=== PATIENT | male | born 1945 | race Caucasian/White ===

== ENCOUNTER 2016-08-09 15:35 | Emergency (ER) | payer OTHER ==
[2016-08-09 15:45] LABS: BASOPHIL# 0.1 X10e3 (0-0.3); BASOPHIL% 0.7 % (0-2.5); EOSINOPHIL# 0.1 X10e3 (0-0.7); EOSINOPHIL% 1.7 % (0.0-7.0); HEMATOCRIT 45.6 % (38.0-50.0); HEMOGLOBIN 14.8 gm/dL (13.0-16.0); LYMPHOCYTE% 24.7 % (17.0-45.0); MEAN CELL VOLUME 86.8 FL (83-96); MEAN CORPUSCULAR HEMOGLOBIN 28.2 PG (28-34); MEAN CORPUSCULAR HGB CONC 32.5 g/dL (30-36); MEAN PLATELET VOLUME 8.1 FL (6.5-11.5); MONOCYTE# 0.5 X10e3 (0-1.0); MONOCYTE% 6.2 % (3.0-12.0); NEUTROPHIL# 5.4 X10e3 (1.5-7.1); NEUTROPHIL% 66.7 % (40-75); PLATELET COUNT 198 X10e3 (140-420); RED BLOOD COUNT 5.25 X10e (3.90-5.60); RED CELL DISTRIBUTION WIDTH 14.1 % (11.0-15.5)
[2016-08-09 15:47] LABS: DIFF IND NO
[2016-08-09 16:09] LABS: BUN/CREATININE RATIO 24.1; CALCIUM SERUM 9.4 mg/dL (8.4-10.2); CREATININE SERUM 3.9 mg/dL (0.6-1.4); GLOM FILT RATE Estimated 14.3 mL/min (>60); POTASSIUM 5.1 mmol/L (3.5-5.1)
[2016-08-09] MEDS ORDERED: LANTUS100 U/ML SUBQ (16:50)
[2016-08-09] MEDS ORDERED: LASIX PO (16:50)
[2016-08-09] MEDS ORDERED: HYDROCODON-ACE1 EAC5 PO (16:51)
[2016-08-09] MEDS ORDERED: HYDROCODONE/HO240 ML PO (16:52)
[2016-08-09] MEDS ORDERED: ASPIRIN81 M2 PO (16:52)
[2016-08-09] MEDS ORDERED: STOOL SOFTENER50 MG PO (16:53)
== END 2016-08-09 17:00 | disposition admitted as inpatient to this hospital (09) ==
LOC: CED 15:35
PROVIDERS: Emergency Medicine
DX: N17.9 Acute kidney failure, unspecified (principal); E78.5 Hyperlipidemia, unspecified; E11.9 Type 2 diabetes mellitus without complications; I10 Essential (primary) hypertension
CPT/HCPCS: 36415; 80048; 85025; 99285